=== PATIENT | female | born 1965 | race Caucasian/White ===

== ENCOUNTER 2023-11-15 00:17 | Day surgery (SDC) | payer OTHER, SELFPAY ==
[2023-10-17 15:10] VITALS: BMI 33.5
--- NOTE | 2023-11-08 09:46 | SUR.PREOP ---
Patient called regarding upcoming procedure. Voicemail left regarding appointment times.
--- NOTE | 2023-11-13 11:11 | SUR.PREOP ---
Patient called regarding upcoming procedure. Voicemail left regarding appointment times.
--- NOTE | 2023-11-14 13:27 | PM.HPGS ---
History of Present Illness History of Present Illness Consent: Risks, benefits, and alternatives have been discussed and questions answered. Patient agrees to proceed with procedure. Chief complaint: other fecal abnormalities Narrative: Agueda Fay is a 58 year old female referred for colon cancer screening. a recent Cologuard test was positive Review of Systems Review of Systems: All systems reviewed & are unremarkable except as noted in HPI and below PMFSH Family History Family History Father Hypertension Malignant neoplasm of prostate Other Family history of arthritis Social History Social History Smoking status: Never smoker Alcohol intake: current Drinks per week: 2 Substance use type: does not use Living arrangements: with family Spiritual care concerns: No Meds Home Medications and Allergies Home Medications Medication Instructions Recorded Confirmed Type alprazolam 0.25 mg tablet 0.25 mg PO HS PRN Insomnia 10/17/23 11/15/23 History fexofenadine 180 mg tablet 180 mg PO DAILY 10/17/23 11/15/23 History fluticasone propionate 50 1 spray intranasal DAILY 10/17/23 11/15/23 History mcg/actuation nasal spray,suspension lisinopril 20 1 tablet PO DAILY 10/17/23 11/15/23 History mg-hydrochlorothiazide 25 mg tablet Allergies Allergy/AdvReac Type Severity Reaction Status Date / Time Sulfa (Sulfonamide Allergy Unknown Other Verified 11/15/23 06:26 Antibiotics) Exam Const: General: alert Orientation/consciousness: patient oriented x3 Resp: Auscultation: clear to auscultation bilaterally Cardio: Rhythm: regular rhythm GI: GI Palp: Yes Soft to palpation and No Tenderness to palpation present (GI) Neuro: General: patient oriented x3 Assessment and Plan Assessment and plan (1) Colon cancer screening: Code(s): Z12.11 - Encounter for screening for malignant neoplasm of colon Status: Acute Assessment and Plan: Colonoscopy with possible biopsy or polypectomy or cautery or injection of substances.
[2023-11-15 06:34] VITALS: BP 145/76; PULSE 74; RESP 16; TEMP 36.4; O2SAT 98
[2023-11-15] MEDS: LACTATED RINGERS 1,000 ML 150 ML IV CONT (06:46)
--- NOTE | 2023-11-15 07:25 | WPDANESEPPF ---
Anes - Initial Pre Proc Eval Procedure: Operation Date: 11/15/23 07:30 Proposed Procedures p Colonoscopy - Kilo Conrad MD Date/Time: 11/15/23 07:25 Surgeon: Kilo Conrad MD Pre Op Diagnosis: other fecal abnormalities Patient Data Age: 58 Gender: F Height: 1.63 m Weight: 87.9 kg Last Vital Signs Temp 97.6 F 11/15/23 06:34 Pulse 74 11/15/23 06:34 Resp 16 11/15/23 06:34 BP 145/76 H 11/15/23 06:34 Pulse Ox 98 11/15/23 06:34 O2 Del Method Room Air 11/15/23 06:34 Allergies Allergy/AdvReac Type Severity Reaction Status Date / Time Sulfa (Sulfonamide Allergy Unknown Other Verified 11/15/23 06:26 Antibiotics) Home Medications Medication Instructions Recorded Confirmed Type alprazolam 0.25 mg tablet 0.25 mg PO HS PRN Insomnia 10/17/23 11/15/23 History fexofenadine 180 mg tablet 180 mg PO DAILY 10/17/23 11/15/23 History fluticasone propionate 50 1 spray intranasal DAILY 10/17/23 11/15/23 History mcg/actuation nasal spray,suspension lisinopril 20 1 tablet PO DAILY 10/17/23 11/15/23 History mg-hydrochlorothiazide 25 mg tablet Patient hx anesthesia problems: none Family hx anesthesia problems: none Results Review: All pre-operative results and documents have been reviewed as part of the pre-operative evaluation. [facility] Family History Family History Father Hypertension Malignant neoplasm of prostate Other Family history of arthritis Social History Social History Smoking status: Never smoker Alcohol intake: current Drinks per week: 2 Substance use type: does not use Living arrangements: with family Spiritual care concerns: No Anes - Eval Final PreProcedure Day of Procedure 11/15/23 07:25 Patient weight: obese Heart: regular rate and rhythm Lungs: clear to auscultation Airway: Mallampati scale class II Neurological: alert and oriented Last oral intake: >/= 8 hours ASA classification: III Emergent: no Anesthetic plan: proceed Anesthesia type and monitoring: general GIVS and standard monitoring Results Review: All pre-operative results and documents have been reviewed as part of the pre-operative evaluation. Informed Consent: The patient's anesthetic plan and its attendant risks and benefits were discussed with the patient/family/POA. Questions were solicited and answers provided to the satisfaction of the patient/family/POA.
[2023-11-15 07:43] VITALS: BP 112/76; PULSE 61; RESP 19; O2SAT 99
[2023-11-15 07:53] VITALS: BP 128/70; PULSE 63; RESP 20; O2SAT 98
[2023-11-15 08:12] VITALS: BP 134/81; PULSE 62; RESP 20; O2SAT 99
--- OUTSIDE RECORDS SUMMARY | 2023-12-21 11:04 | XMS_ITS | Referral Summary ---
Author Name Unknown Organization [facility] Address [address] [place] [address] [place] [address] Care Team Providers Care Sweetbread Trimmer Name Role Phone Batsheva El PA-C Primary Care Provider [phone] Reason for Referral * Consultation (Urgent) - New Request Specialty Diagnoses / Procedures Referred By Salome gonzalez Referred To Contact GASTROENTEROLOGY Diagnoses Positive colorectal cancer screening using Cologuard test Batsheva El PA-C [id number] [facility] [address] [place] [id number] Kilo Conrad MD [address] [place] [address] [address] [place] [id number] Referral ID Status Reason Start Date Expiration Date V isits Requested Visits Authorized [id number] New Request 10/05/2023 10/05/2024 1 1 FOOD FRY COOK Encounter Details Date Type Department Care Team Description 09/29/2023 MyChart Message Enc [facility] Family & Internal Medicine [address] [id number] Batsheva El PA-C [address] [facility] [address] [place] [id number] Colonoscopy scheduling Allergies Active Allergy Reactions Criticality Noted Date Comments Sulfa Antibiotics Anaphylaxis,Unknown High 3 documented as of this encounter (statuses as of 10/05/2023) Medications Me
== END 2023-11-15 08:14 | disposition home or self-care (01) ==
PROVIDERS: PCP Physician Assistant; Visit Provider Internal Medicine Gastroenterology
PROC: 0DJD8ZZ Inspection of Lower Intestinal Tract, Via Natural or Artificial Opening Endoscopic (ICD-10-PCS; CPT 45378; principal; 2023-11-15 07:30)
DX: Z12.11 Encounter for screening for malignant neoplasm of colon (principal); R19.5 Other fecal abnormalities; E66.9 Obesity, unspecified; Z68.33 Body mass index [BMI] 33.0-33.9, adult
CPT/HCPCS: 45378; J2704; J7120